=== PATIENT | female | born 1985 | race African-American/Black ===

== ENCOUNTER 2022-06-29 08:02 | Outpatient (CLI) | payer OTHER, SELFPAY ==
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
== END 2022-06-29 08:03 ==
PROVIDERS: Visit Provider Orthopaedic Surgery
DX: M25.511 Pain in right shoulder (principal); G89.29 Other chronic pain; M75.101 Unspecified rotator cuff tear or rupture of right shoulder, not specified as traumatic; M75.51 Bursitis of right shoulder
CPT/HCPCS: 73221